=== PATIENT | male | born 1980 | race Caucasian/White ===

== ENCOUNTER → 2016-10-19 | Outpatient (REF) | payer BC | LOC: LAB 09:23 | PROVIDERS: ATTEND Family Medicine | DX: R35.0 Frequency of micturition (principal) | CPT/HCPCS: 83036 ==

== ENCOUNTER → 2016-11-13 | Outpatient (CLI) | payer BC ==
[~2016-11-13] MED LIST: HYDR-33 PO; SULF-240 PO
--- NOTE | 2016-11-13 16:02 | Diagnostic Imaging Report ---
PROCEDURE: MRI pelvis with and without contrast. Large field view of the pelvis was obtained. Images are obtained with and without contrast. TECHNIQUE: Multiplanar, multisequence MRI of the pelvis was performed with and without contrast. INDICATION: History of perirectal abscess with recurrent pain. COMPARISON: CT scan of 01/15/2016. FINDINGS: No evidence of perirectal fluid collections is demonstrated on today's exam. The distal rectum appears normal. The perineal region shows no fluid collections. The pelvic floor muscle planes are well preserved. No pelvic masses are seen. No free fluid. No bony abnormalities are demonstrated. IMPRESSION: No evidence of perirectal abscess demonstrated on the current exam. If symptoms persist, would consider high-resolution small [id number] MRI which is utilized for rectal staging to evaluate for perirectal fistula. Dictated by: Dictated on workstation # [id number]
== END ==
LOC: RAD 12:25
PROVIDERS: ATTEND Urology
DX: R10.33 Periumbilical pain (principal); R10.2 Pelvic and perineal pain
CPT/HCPCS: 72197; A9579